=== PATIENT | female | born 1965 | race Caucasian/White ===

== ENCOUNTER 2023-08-22 10:18 | Emergency (ER) | payer OTHER, SELFPAY ==
[2023-08-22 10:24] VITALS: BP 166/95; PULSE 74; RESP 18; TEMP 36.3; O2SAT 97; BMI 32.8
--- NOTE | 2023-08-22 11:07 | CRLHL7_ITS ---
For Patients: As a result of the Cures Act, medical imaging exams and procedure reports are released immediately into your electronic medical record. You may view this report before your referring provider. If you have questions, please contact your health care provider. INDICATION: Left knee pain, fall TECHNIQUE: Three-view left knee COMPARISON: None FINDINGS: Three views of the left knee reveal no fracture, malalignment/dislocation, acute osseous abnormality or joint effusion. Mild to moderate degenerative changes are present in the medial compartment. IMPRESSION: Chronic changes without acute abnormality identified. Dictated by Jose Guadalupe Doherty MD @ 08/22/2023 12:20:03 PM (Electronically Signed)
--- NOTE | 2023-08-22 11:14 | ED_ITS ---
HPI - Extremity Injury (Lower) General Date Seen: 08/22/23 Chief Complaint: Extremity Pain/Injury, Lower Stated Complaint: left knee injury Time Seen by Provider: 08/22/23 10:59 Source: patient Mode of arrival: ambulatory Limitations: no limitations History of Present Illness HPI Narrative: Patient is a 58-year-old female with no pertinent medical problems presents to emergency department for left knee pain. She states yesterday was his the dog park her dog ran into her left knee causing her fall down. She has been able to walk on it but states it has been painful. She has no some increased swelling to the left knee. pain is mostly to the medial portion of the knee and down the medial portion of the dumont. Some left hip pain. States all this pain started shortly after the injury. No previous hip or knee issues. Denies fevers, chills, weakness, numbness. Related Data Home Medications Medication Instructions Recorded Confirmed amlodipine 10 mg tablet 10 mg PO DAILY 08/22/23 08/22/23 aspirin 81 mg tablet,delayed 81 mg PO DAILY 08/22/23 08/22/23 release furosemide 20 mg tablet 20 mg PO DAILY 08/22/23 08/22/23 losartan 100 mg tablet 100 mg PO DAILY 08/22/23 08/22/23 metoprolol succinate 50 mg 50 mg PO BID 08/22/23 08/22/23 tablet,extended release 24 hr rosuvastatin 10 mg tablet 10 mg PO QPM 08/22/23 08/22/23 Review of Systems Narrative: Negative unless stated in HPI Exam Narrative: Exam Narrative: Const: Well-nourished, Well-developed, in mild distress Eyes: PERRL, no conjunctival injection, and symmetrical lids HENT: Atraumatic external nose and ears. Moist mucous membranes. MSK:Extremities w/o deformity, Normal Active ROM, tenderness to palpation noted to left medial knee and dumont and some pain lateral aspect of the hip Skin: Warm, Dry. No rashes or lesions. Neuro: Normal Muscle tone, No focal neurological deficits. Psych: Awake, Alert, & Oriented x3. Appropriate mood and affect. Const: Vital Signs, click to edit/add: Vital Signs - 24 hr 08/22/23 10:24 Temperature 97.4 F L Pulse Rate [Right Pulse Oximeter] 74 Respiratory Rate 18 Blood Pressure [Ri ght Upper Arm] 166/95 H Pulse Oximetry 97 Oxygen Delivery Me thod Room Air Course Vital Signs Vital signs: Initial Vital Signs Temperature 97.4 F L 08/22/23 10:24 Temperature Source Temporal Artery Scan 08/22/23 10:24 Pulse Rate 74 08/22/23 10:24 Respiratory Rate 18 08/22/23 10:24 Blood Pressure 166/95 H 08/22/23 10:24 Blood Pressure Mean 118 H 08/22/23 10:24 Blood Pressure Position Sitting 08/22/23 10:24 Pulse Oximetry 97 08/22/23 10:24 Oxygen Delivery Method Room Air 08/22/23 10:24 Vital Signs Temperature 97.4 F L 08/22/23 10:24 Pulse Rate 74 08/22/23 10:24 Respiratory Rate 18 08/22/23 10:24 Blood Pressure 166/95 H 08/22/23 10:24 Pulse Oximetry 97 08/22/23 10:24 Oxygen Delivery Method Room Air 08/22/23 10:24 Temperature 97.4 F L 08/22/23 10:24 Pulse Rate 74 08/22/23 10:24 Respiratory Rate 18 08/22/23 10:24 Blood Pressure 166/95 H 08/22/23 10:24 Pulse Oximetry 97 08/22/23 10:24 Oxygen Delivery Method Room Air 08/22/23 10:24 MDM - Extremity Injury (Lower) MDM Narrative Medical decision making narrative: patient is a 58-year-old female presenting for left knee pain. This occurred after dog ran into her causing a valgus movement of the knee. She had some pain to the left hip and left dumont also. She was given Toradol for her pain. I did order x-rays of all 3 were patient states she does not want the hip or tib/ fib x-rays. X-rays of the knee showed no concerning abnormalities. Patient likely has soft tissue injury but cannot say definitively what it is. Pain is around the MCL And could have been what she injured. patient will follow-up with orthopedics in will be discharged home. She agrees with this plan. Imaging Data left knee x-ray: Radiologist's impression: INDICATION: Left knee pain, fall TECHNIQUE: Three-view left knee COMPARISON: None FINDINGS: Three views of the left knee reveal no fracture, malalignment/dislocation, acute osseous abnormality or joint effusion. Mild to moderate degenerative changes are present in the medial compartment. IMPRESSION: Chronic changes without acute abnormality identified. Dictated by Jose Guadalupe Doherty MD @ 08/22/2023 12:20:03 PM Discharge Plan Discharge Clinical Impression: Knee sprain Qualifiers: Encounter type: initial encounter Involved ligament of knee: unspecified ligament Laterality: left Qualified Code(s): S83.92XA - Sprain of unspecified site of left knee, initial encounter Patient Disposition: Home, Self-Care Condition: Stable Instructions: Knee Sprain (DC) Additional Instructions: follow-up with orthopedics if pain continues. Return for new worsening symptoms. He can use ice to help with the pain. Take Tylenol and ibuprofen for pain. Prescriptions: No Action metoprolol succinate 50 mg tablet extended release 24 hr 50 mg PO BID aspirin 81 mg tablet,delayed release (DR/EC) 81 mg PO DAILY amlodipine 10 mg tablet 10 mg PO DAILY furosemide 20 mg tablet 20 mg PO DAILY losartan 100 mg tablet 100 mg PO DAILY rosuvastatin 10 mg tablet 10 mg PO QPM Follow Up/Referrals: Rae Mota MD [Primary Care Provider] - Stand Alone Forms: [employer] [facility] Info Instructions
[2023-08-22] MEDS: KETOROLAC 30 MG/ML inj IM (11:15)
--- NOTE | 2023-09-03 13:18 | ED.NURSE ---
chart accessed due to calling and wanting proof that she was here for [place].
== END 2023-08-22 13:00 | disposition home or self-care (01) ==
PROVIDERS: Emergency Provider Student in an Organized Health Care Education/Training Program; PCP Family Medicine
DX: S83.92XA Sprain of unspecified site of left knee, initial encounter (principal); W54.1XXA Struck by dog, initial encounter
CPT/HCPCS: 73562; 96372; 99282; 99283; J1885

== ENCOUNTER 2023-11-19 07:58 | Day surgery (SDC) | payer OTHER, SELFPAY ==
[2023-11-19] VITALS (11 sets, daily range): BP systolic 90–121; BP diastolic 57–79; PULSE 58–64; RESP 16; TEMP 36.1–36.3; O2SAT 92–94; BMI 33.3
--- OUTSIDE RECORDS SUMMARY | 2023-11-19 08:10 | XMS_ITS | Clinical Summary ---
Author Name Unknown Organization [employer] [facility] Address [place], [place] [address] Care Team Providers Care Painting Contractor Name Role Phone Rae Mota MD Primary Care Provider [phone] Allergies Active Allergy Reactions Criticality Noted Date Comments Lisinopril 06/10/2010 Mouth and tongue swelling Menthol 06/27/2010 Medications Medication Sig Dispensed Refills Start Date End Date Status lancets (Microlet Lancet)Indications:N ew onset type 2 diabetes mellitus (HC) Test 3 times daily 100 Each 5 08/01/2021 Active amLODIPine (NORVASC) 10 mg tabletIndications:Hy pertension Take 1 Tablet (10 mg) by mouth once daily. 90 Tablet 3 12/02/2022 Active aspirin (ECOTRIN) 81 mg enteric coated tabletIndications:Ty pe 2 diabetes mellitus without complication, without long-term current use of insulin (HC) Take 1 Tablet (81 mg) by mouth once daily. 90 Tablet 3 12/02/2022 Active furosemide (LASIX) 20 mg tabletIndications:Hy pertension Take 1 Tablet (20 mg) by mouth once daily. 90 Tablet 3 12/02/2022 Active losartan (COZAAR) 100 mg tabletIndications:Hy pertension Take 1 Tablet (100 mg) by mouth once daily. 90 Tablet 3 12/02/2022 Active metFORMIN (GLUCOPHAGE) 1,000 mg tabletIndications:Ty pe 2 diabetes mellitus without complication, without long-term current use of insulin (HC) Take 1 Tablet (1,000 mg) by mouth two times daily with meals. 180 Tablet 3 12/02/2022 Active rosuvastatin (CRESTOR) 10 mg tabletIndications:Ty pe 2 diabetes mellitus without complication, without long-term current use of insulin (HC) Take 1 Tablet (10 mg) by mouth at bedtime. 90 Tablet 3 12/09/2022 Active metoprolol succinate (TOPROL XL) 50 mg sustained-release tabletIndications:Hy pertension TAKE 1 TABLET(50 MG) BY MOUTH TWICE DAILY 180 Tablet 0 07/14/2023 Active blood sugar diagnostic (Contour Next Test Strips) stripIndications:New onset type 2 diabetes mellitus (HC) Dispense item covered by pt ins. E11.9 IDDM type II - Test 3 times/day. 100 Each 5 08/01/2021 4 Discontinue d(*Patient states no longer taking) ondansetron (ZOFRAN ODT) 8 mg disintegrating tabletIndications:Na usea Place 1 Tablet (8 mg) on the tongue every 8 hours if needed for Nausea/Vomitin g. 30 Tablet 0 08/24/2023 4 Discontinue d(*Patient states no longer taking) Hospital, Clinic, or Other Facility Administered Medication Ordered Dose Route Frequency Start Date End Date Status levonorgestrel intrauterine device (MIRENA) 1 DeviceIndications:Excessive bleeding in premenopausal period 1 Device IU Q 5 YEARS 06/15/2020 Active Active Problems Problem Noted Date Diagnosed Date Type 2 diabetes mellitus wit hout complication, without long-term current use of insulin 11/09/2023 Left fibular fracture 11/09/2023 MCL sprain of left knee 11/09/2023 Tear of medial meniscus of left knee 11/09/2023 Endometriosis 06/07/2020 Obesity (BMI 30-39.9) 05/08/2020 Iron deficiency anemia due to chronic blood loss 05/04/2020 Abnormal ultrasound of uterus 05/04/2020 Overview: Thick endo Perimenopausal menorrhagia 05/02/2020 Hypertension 06/10/2010 Resolved Problems Problem Noted Date Diagnosed Date Resolved Date Prediabetes 05/08/2020 11/09/2023 Encounters Date Type Department Care Team Description 11/09/2023 3:30 PM METEOROLOGY INSTRUCTOR Preop Visit [facility] [address] [place] [address] Madelin Morris MD Pre-Op Exam (pre op knee left 11/19/23 Dr. Ricardo, [facility]) 11/09/2023 Travel 11/05/2023 Orders Only [facility] Scanner 1 scan: (1-Ord) [facility], 11/05/2023 10/06/2023 1:45 PM METEOROLOGY INSTRUCTOR - 10/06/2023 11:59 PM METEOROLOGY INSTRUCTOR Hospital Encounter [address] [place] [address] Rae Mota MD Acute pain of left knee 10/06/2023 Telephone [facility] [address] [place] [address] Rae Mota MD Results (/) 10/06/2023 Travel 09/23/2023 Telephone [facility] [address] [place] [address] Rae Mota MD Concussion (Concussion questions) 09/21/2023 Telephone [facility] [address] [place] [address] Rae Mota MD Results 09/18/2023 10:00 AM METEOROLOGY INSTRUCTOR Office Visit [facility] [address] [place] [address] Rae Mota MD Follow Up (Concussion Follow up 08/21/23/Still having nausea and dizziness ) 09/18/2023 Travel 09/14/2023 Telephone [facility] [address] [place] [address] Rae Mota MD Follow Up 09/09/2023 12:45 PM METEOROLOGY INSTRUCTOR Office Visit [facility] [address] [place] [address] Rae Mota MD ER Follow up 09/09/2023 Travel 09/07/[address] [address] Rae Mota MD Form (FMLA) 09/03/2023 Telephone [facility] [address] [place] [address] Rae Mota MD Questions 08/26/2023 Telephone [facility] [address] [place] [address] Rae Mota MD Medication Management (Metoclopramide ) 08/24/2023 1:20 PM CDT Office Visit [facility] [address] [place] [address] Katerina Juan PA Fall (Hurt LT knee on 08/21/23 at a dog park, headaches started on 08/22/23 and getting worse ) 08/24/2023 Travel 08/24/2023 Nurse Triage [facility] [address] [place] [address] Rae Mota MD Headache 08/22/2023 Orders Only [facility] Scanner 1 scan: (1-Ord) [place], XR KNEE LT 3V, 08/22/2023 from Last 3 Months Immunizations Name Administration Dates Next Due Hepatitis B (Adult) 06/02/2023,12/31/2022,2022 Influenza A (H1N1), Inactivated 12/17/2009 Influenza, IIV3 (Age 6-35 mos) 08/27/2009 Influenza, IIV4 09/18/2023,,07/27/2019,2017 Pneumococcal Conj 20-valent (Prevnar 20) 12/02/2022 Tdap 07/27/2019 Family History Medical History Relation Name Comments Diabetes Brother Diabetes Father Heart attack Maternal Grandfather Hypertension Mother Diabetes Sister 1 Hypertension Sister 2 Anesthesia Problem No Family History Blood Disease No Family History Cancer-breast No Family History Cancer-colon No Family History Clotting disorder No Family History Ovarian cysts No Family History Relation Name Status Comments Brother Alive Diabetic Father Alive DM Maternal Grandfather Mother Alive HTN, CABG Sister 1 Alive Sister 2 Alive Sister 3 Alive HTN Social History Tobacco Use Types Packs/Day Years Used Date Smoking Tobacco: Former Cigarettes 1 16 1 - 1996 Smokeless Tobacco: Never Tobacco Cessation:Counseling Given: Yes Comments:quit age 31 after smoking one ppd for 16 yrs. Alcohol Use Standard Drinks/Week Comments Yes 1 (1 standard drink = 0.6 oz pur e alcohol) occ PHQ-2 Answer Date Recorded PHQ-2 TOTAL SCORE 0 09/18/2023 Social Connections Answer Date Recorded Frequency of Communication with Friends and Fami ly 0 09/09/2023 Financial Resource Strain Answer Date R ecorded Difficulty of Paying Living Expenses 3 09/09/2023 Difficulty of Paying Living Expenses Not on file 09/09/2023 Food Insecurity Answer Date Recorded Worried About Running Out of Food in the Last Ye ar 1 09/09/2023 Transportation Needs Answer Date Record ed Lack of Transportation (Medical) 1 09/09/2023 Housing Stability Answer Date Recorded Unable to Pay for Housing in the Last Year 1 09/09/2023 Sex and Gender Information Value Date Recorded Sex Assigned at Not on file Gender Identity Not on file Sexual Orientation Not on file Obstetrics History Para Term AB IAB SAB Ectopic Multiple Livin g Live Births 12 8 8 4 1 3 8 8 Date Outcome GA Total Labor Labor//3rd Weight Sex Delivery Anes PTL Kimber A1 A5 Name Cl in SAB 11/02 IAB ELECTIVE AB 05/28 M Vag Lily ng 12/31 F Vag Lily ng 04/12 M Vag Lily ng 06/28 M Vag Lily ng 03/29 M Vag Lily ng 12/15 F Vag Lily ng 03/07 F Vag Lily ng 05/22 F Vag Lily ng Last Filed Vital Signs Vital Sign Reading Time Taken Comments Blood Pressure 121/80 11/09/2023 3:43 PM METEOROLOGY INSTRUCTOR Pulse 68 11/09/2023 3:43 PM METEOROLOGY INSTRUCTOR Temperature 36.6 ??C (97.9 ??F) 11/09/2023 3:43 PM CS T Respiratory Rate 18 06/10/2021 9:32 AM CDT Oxygen Saturation 97% 11/09/2023 3:43 PM METEOROLOGY INSTRUCTOR Inhaled Oxygen Concentration - - Weight 85.5 kg (188 lb 6.4 oz) 11/09/2023 3:43 P M METEOROLOGY INSTRUCTOR Height 160.7 cm (5' 3.25) 11/09/2023 3:43 PM CS T Body Mass Index 33.11 11/09/2023 3:43 PM METEOROLOGY INSTRUCTOR Plan of Treatment Upcoming Encounters Date Type Department Care Team (Late st Contact Info) Description 12/15/2023 3:40 PM METEOROLOGY INSTRUCTOR Office Visit [facility] [address] [place] [address] Rae Mota MD [address] [facility] [address] Health Maintenance Due Date Last Done Comments HIV for age 15-65 1982 Hepatitis C screening for ag e 18-79 1985 Colonoscopy through age 75 2012 Mammogram for age 45-75 2012 Zoster (shingles) series for age 50+ (1 of 2) 2017 COVID-19 vaccine series (2022- season) 2023 01/09/2021, 12/12/2020 Depression screening for age 12+ 09/21/2024 09/21/2023, 09/18/2023, 07/26/2021, Additional history exists BMI (ht and wt on same day) for age 18+ 11/09/2024 11/09/2023, 08/24/2023, 12/02/2022, Additional history exists Pap test for age 21-65 05/08/2025 05/08/2020, 2019 Lipids for age 45-75 09/18/2028 09/18/2023, 12/02/2022, 11/12/2021, Additional history exists Tetanus booster 07/27/2029 07/27/2019 Tdap Completed 07/27/2019 Pneumococcal series for age 6-64 Completed 12/02/19 Hepatitis B series for Diabetes Completed 06/02/2023, 12/31/2022, 12/02/2022 Influenza for age 50-64 Completed 09/18/20 23, 07/23/2021, 07/27/2019, Additional history exists Procedures Procedure Name Priority Date/Time Associated Diagnosis Comments POTASSIUM Routine 11/09/2023 4:23 PM METEOROLOGY INSTRUCTOR Pre-op exam SCAN-EYE EXAM 11/05/2023 12:00 AM METEOROLOGY INSTRUCTOR MR KNEE LEFT WO Routine 10/06/2023 2:24 PM METEOROLOGY INSTRUCTOR Acute pain of left knee LDL CHOLESTEROL,DIRECT Routine 09/18/2023 11:16 AM METEOROLOGY INSTRUCTOR Type 2 diabetes mellitus without complication, without long-term current use of insulin (HC) BASIC METABOLIC PANEL Routine 09/18/2023 11:16 AM METEOROLOGY INSTRUCTOR Hypertension HEMOGLOBIN A1C Routine 09/18/2023 11:16 AM METEOROLOGY INSTRUCTOR Type 2 diabetes mellitus without complication, without long-term current use of insulin (HC) SCAN-RADIOLOGY REPORT 08/22/2023 12:00 AM CDT from Last 3 Months Results * POTASSIUM (11/09/2023 4:23 PM METEOROLOGY INSTRUCTOR) POTASSIUM 3.7 3.5 - 5.1 mmol/L 11/10/2023 1:59 PM METEOROLOGY INSTRUCTOR [facility] Blood BLOOD SPECIMEN / Unknown Venipuncture / Unknown 11/09/2023 4:23 PM METEOROLOGY INSTRUCTOR 11/09/2023 4:23 PM METEOROLOGY INSTRUCTOR Madelin Morris MD CHEMISTRY [facility] [address] [place] [id number], * SCAN-EYE EXAM (11/05/2023 12:00 AM METEOROLOGY INSTRUCTOR) Scanner OTHER * MR KNEE LEFT WO (10/06/2023 2:24 PM METEOROLOGY INSTRUCTOR) Anatomical Region Laterality Modality KNEE L Magnetic Resonan ce 10/06/2023 3:57 PM METEOROLOGY INSTRUCTOR Impressions 10/06/2023 3:57 PM METEOROLOGY INSTRUCTOR 1. Complex tearing medial meniscus with internal flap. 2. Grade 2 partial tearing proximal MCL. Associated MCL bursitis. 3. Nondisplaced fibular head fracture with intra-articular extension but no incongruity at the proximal tibiofibular joint. 4. Mild osteoarthritis medial and patellofemoral compartment. 5. Multiloculated moderately large intra-articular pericruciate ganglion. Dictated by Juan Ramon Carlos MD @ 10/06/2023 3:57:08 PM (Electronically Signed) Narrative 10/06/2023 3:57 PM METEOROLOGY INSTRUCTOR For Patients: ??As a result of the Cures Act, medical imaging exams and procedure reports are released immediately into your electronic medical record. ??You may view this report before your referring provider. ??If you have questions, please contact your health care provider. INDICATION: Acute knee pain. Tenderness and swelling. COMPARISON: 23 June 2022. TECHNIQUE: Axial T1 and PD fat-sat, sagittal PD and T2 fat-sat and coronal PD and PD fat- sat left knee. FINDINGS: Medial compartment: Meniscus: Complex horizontal undersurface tear of the body and posterior horn. An internal displaced flap. Intact root. Mild extrusion of anterior horn and anterior body. Articular cartilage: Undulating relatively high-grade 2 to grade 3. Tiny marginal osteophytes. MCL: Somewhat attenuated proximal ligament and thickened mid ligament with underlying fluid in the bursa. Soft tissue edema along the medial joint line. - Cruciate ligaments: ACL: Intact. PCL: Intact. - Lateral compartment: Meniscus: Intact. Articular cartilage: Uniform. Lateral collateral complex: Intact. - Patellofemoral compartment: Up to irregular grade 3 thinning and fissuring in the patella most pronounced at the median ridge. Mild grade 2 thinning uniformly through the trochlea. - Extensor mechanism: Distal quadriceps tendon and patellar tendon are intact with anatomic patellar alignment. - Bones and soft tissues: Physiologic free fluid in the joint. Multiloculated ganglion posterior recess behind the PCL. Small popliteal Hanna`s cyst. Trabecular fracture with surrounding fibular head. Fracture extends through the articular cortex without incongruity of the joint. Procedure Note Juan Ramon Carlos MD - 10/06/2023 For Patients: As a result of the Cures Act, medical imagingexams and procedure reports are released immediately into your electronicmedical record. You may view this report before your referring provider.If you have questions, please contact your health care provider. INDICATION: Acute knee pain. Tenderness and swelling. COMPARISON: 23 June 2022. TECHNIQUE: Axial T1 and PD fat-sat, sagittal PD and T2 fat-sat and coronal PD and PDfat-sat left knee. FINDINGS: Medial compartment: Meniscus: Complex horizontal undersurface tear of the body and posteriorhorn. An internal displaced flap. Intact root. Mild extrusion of anteriorhorn and anterior body. Articular cartilage: Undulating relatively high-grade 2 to grade 3. Tinymarginal osteophytes. MCL: Somewhat attenuated proximal ligament and thickened mid ligament withunderlying fluid in the bursa. Soft tissue edema along the medial jointline. - Cruciate ligaments: ACL: Intact. PCL: Intact. - Lateral compartment: Meniscus: Intact. Articular cartilage: Uniform. Lateral collateral complex: Intact. - Patellofemoral compartment: Up to irregular grade 3 thinning and fissuringin the patella most pronounced at the median ridge. Mild grade 2 thinninguniformly through the trochlea. - Extensor mechanism: Distal quadriceps tendon and patellar tendon areintact with anatomic patellar alignment. - Bones and soft tissues: Physiologic free fluid in the joint.Multiloculated ganglion posterior recess behind the PCL. Small poplitealBaker`s cyst. Trabecular fracture with surrounding fibular head. Fractureextends through the articular cortex without incongruity of the joint. IMPRESSION: 1. Complex tearing medial meniscus with internal flap. 2. Grade 2 partial tearing proximal MCL. Associated MCL bursitis. 3. Nondisplaced fibular head fracture with intra-articular extension butno incongruity at the proximal tibiofibular joint. 4. Mild osteoarthritis medial and patellofemoral compartment. 5. Multiloculated moderately large intra-articular pericruciateganglion. Dictated by Juan Ramon Carlos MD @ 10/06/2023 3:57:08 PM (Electronically Signed) Rae Mota MD MR * LDL CHOLESTEROL,DIRECT (09/18/2023 11:16 AM METEOROLOGY INSTRUCTOR) LDL CHOLESTEROL,DI RECT 24 mg/dL 09/18/2023 6:00 PM METEOROLOGY INSTRUCTOR [facility] PROVIDER ORDERED STATUS RANDOM 09/18/2023 6:00 PM METEOROLOGY INSTRUCTOR [facility] Blood BLOOD SPECIMEN / Unknown Venipuncture / Unknown 09/18/2023 11:16 AM METEOROLOGY INSTRUCTOR 09/18/2023 11:16 AM METEOROLOGY INSTRUCTOR Narrative [facility] - 09/18/2023 6:00 PM METEOROLOGY INSTRUCTOR Optimal ?<100 mg/dl Near Optimal ?100-129 mg/dl Borderline High ?? 130-159 mg/dl High ?160-189 mg/dl Very High ? >=190 mg/dl Rae Mota MD CHEMISTRY Performing Organization Address [facility] de Phone Number [facility] [address] [place] [address], [place] * (ABNORMAL) HEMOGLOBIN A1C MONITORING (POCT) (09/18/2023 11:16 AM METEOROLOGY INSTRUCTOR) HEMOGLOBIN A1C MONITORING (POCT) 6.8(H) <=6.4 % 09/18/2023 11:39 AM METEOROLOGY INSTRUCTOR [facility] Blood BLOOD SPECIMEN / Unknown Venipuncture / Unknown 09/18/2023 11:16 AM METEOROLOGY INSTRUCTOR 09/18/2023 11:16 AM METEOROLOGY INSTRUCTOR Narrative [facility] - 09/18/2023 11:39 AM METEOROLOGY INSTRUCTOR ? (<=6.9%) ? Indicates good control ? (7.0% to 7.9%) ? Indicates fair control ? (>=8.0%) ? Indicates poor control ?? NOTE: ??These thresholds are guidelines and ?individual targets may vary. Falsely low levels may be seen with: Recent Transfusion, Recent Significant Blood Loss, Hemolytic Diseases, or Falsely elevated levels may be seen with: Untreated Anemias, Splenectomy ? Rae Mota MD CHEMISTRY Performing Organization Address [facility] de Phone Number [facility] [address] [place] [address], [place] [phone] * (ABNORMAL) BASIC METABOLIC PANEL (09/18/2023 11:16 AM METEOROLOGY INSTRUCTOR) [facility] SODIUM 140 136 - 145 mmol/L 09/18/2023 6:00 PM [facility] POTASSIUM 4.1 3.5 - 5.1 mmol/L 09/18/2023 6:00 PM [facility] CHLORIDE 102 98 - 107 mmol/L 09/18/2023 6:00 PM [facility] CO2,TOTAL 28 22 - 29 mmol/L 09/18/2023 6:00 PM [facility] ANION GAP 10 5 - 18 09/18/2023 6:00 PM [facility] GLUCOSE 127(H) 70 - 99 mg/dL 09/18/2023 6:00 PM [facility] CALCIUM 9.2 8.6 - 10.0 mg/dL 09/18/2023 6:00 PM [facility] BUN 12 6 - 20 mg/dL 09/18/2023 6:00 PM [facility] CREATININE 0.66 0.50 - 0.90 mg/dL 09/18/2023 6:00 PM [facility] BUN/CREAT RATIO 18 10 - 20 6:00 PM [facility] eGFR >90 >90 mL/min/1.7 3m2 09/18/2023 6:00 PM [facility] Comment:As of 2022, eG FR is calculated by the CKD-EPI creatinine equation without race adjustment. ??eGFR can be influenced by muscle mass, exercise, and diet. ??The reported eGFR is an estimation only and is only applicable if the renal function is stable. Blood BLOOD SPECIMEN / Unknown Venipuncture / Unknown 09/18/2023 11:16 AM METEOROLOGY INSTRUCTOR 09/18/2023 11:16 AM [facility] Rae Mota MD CHEMISTRY [facility] [address] [place] [address], * SCAN-RADIOLOGY REPORT (08/22/2023 12:00 AM CDT) Anatomical Region Laterality Modality Other Scanner OTHER from Last 3 Months Advance Directives Latest Code Status on File Code Status Date Activated Date Inactivated Comments Full Code 05/18/2020 9:01 AM 05/18/2020 3:33 PM Care Teams Painting Contractor Relationship Specialty Start Date End Date Rae Mota MD [address] [facility] [address] PCP - General Family Practice 10/06/17
--- OUTSIDE RECORDS SUMMARY | 2023-11-19 08:10 | XMS_ITS | Encounter Summary ---
Author Name Unknown Organization [facility] Address [address], [place] [address] Care Team Providers Care Wholesale Representative Name Role Phone No Primary/Referring, Phy Primary Care Provider Unavailable Reason for Referral * Consult/Transfer Care (Routine) - New Request Specialty Diagnoses / Procedures Referred By Kimberly latham Referred To Contact Diagnoses Acute nonintractable headache, unspecified headache type Post concussive syndrome Ranjeet Guaman MD [address] [place] [id number] Referral ID Status Reason Start Date Expiration Date V isits Requested Visits Authorized [id number] New Request 08/25/2023 11/23/2023 1 1 Scheduling Instructions Your clinician has recommended an appointment with [facility] for your ongoing patient care. You can quickly make your appointment online at [email or web address]. You can also call [phone] for help scheduling your appointment. We suggest you call your health insurance company about your coverage and benefits for this appointment. Question Answer What type of follow up? ED Discharge Appointment Urgency? As Needed Comments No Primary/Referring * Procedure/Equipment (Routine) - Incomplete Specialty Diagnoses / Procedures Referred By Kimberly latham Referred To Contact Procedures CT Head WO IV Cont Ranjeet Guaman MD [address] [place] [id number] Referral ID Status Reason Start Date Expiration Date V isits Requested Visits Authorized [id number] Incomplete 08/25/2023 11/23/2024 1 1 Reason for Visit * Reason Comments Headache Encounter Details Date Type Department Care Team Description 08/25/2023 1:11 AM CDT - 08/25/2023 2:42 AM CDT Emergency [facility] [address] [place] [id number] Ranjeet Guaman MD [address] [place] [address] Acute nonintractable headache, unspecified headache type (Primary Dx); Post concussive syndrome Discharge Disposition: Home Social History Tobacco Use Types Packs/Day Years Used Date Smoking Tobacco: Never Assessed Sex and Gender Information Value Date Recorded Sex Assigned at Not on file Gender Identity Not on file Sexual Orientation Not on file documented as of this encounter Last Filed Vital Signs Vital Sign Reading Time Taken Comments Blood Pressure 147/90 08/25/2023 2:30 AM CDT Pulse 70 08/25/2023 2:30 AM CDT Temperature 36.6 ??C (97.8 ??F) 08/24/2023 9:45 PM CD T Respiratory Rate 16 08/25/2023 2:30 AM CDT Oxygen Saturation 99% 08/25/2023 2:30 AM CDT Inhaled Oxygen Concentration - - Weight - - Height - - Body Mass Index - - documented in this encounter Discharge Instructions * Discharge Instructions* Tushar Cintron MD - 08/25/2023 2:29 AM CDT You were seen in the emergency department for headache. We did tests including CT scan that showed no evidence of bleeding in the brain, and no clear cause for your symptoms. Because you are experiencing prolonged headache and nausea after a fall during which you likely hit her head, it seems you are probably experiencing symptoms of concussion. It can be difficult to predict how long these symptoms will last, for some people can last hours to days, for others can last weeks to months. If you would like formal concussion testing, you can meet with her primary doctor for evaluation. In the meantime, you can take ibuprofen or acetaminophen (Tylenol) for your headache pain. You can alternate these every three hours as needed. So, for example, you could take ibuprofen at noon, then Tylenol at 3pm, then ibuprofen again at 6pm, and so on. Do not take more Tylenol or ibuprofen than the daily maximum dose as indicated on the bottle. I am also sending you with a prescription for a medication called metoclopramide, also called Reglan, which is a medicine that you can take to help with both headache and nausea. Return to the emergency department if your symptoms worsen or you have new symptoms that you find concerning. * Attachments The following attachments cannot be sent through Care Everywhere. * Postconcussion Syndrome (Estonian) documented in this encounter Medications at Time of Discharge Medication Sig Dispensed Refills Start Date End Date amLODIPine (NORVASC) 10 MG tablet Take 1 Tablet (10 mg) by mouth daily. 0 07/22/2023 ASPIRIN LOW DOSE 81 MG enteric coated tablet Take 1 Tablet (81 mg) by mouth daily. 0 06/22/2023 furosemide (LASIX) 20 MG tablet Take 1 Tablet (20 mg) by mouth daily. 0 08/15/2023 losartan (COZAAR) 100 MG tablet Take 1 Tablet (100 mg) by mouth daily. 0 07/13/2023 metoclopramide (REGLAN) 10 MG tablet Take 1 Tablet (10 mg) by mouth every 8 hours as needed for Nausea or Vomiting 15 Tablet 0 08/25/2023 metoprolol succinate (TOPROL XL) 50 MG 24 hour release tablet Take by mouth. 0 07/14/2023 rosuvastatin (CRESTOR) 10 MG tablet Take 1 Tablet (10 mg) by mouth daily at bedtime. 0 06/22/2023 documented as of this encounter ED Notes * uTshar Cintron MD - 08/25/2023 2:42 AM CDT [facility] Emergency Medicine Visit Note Chief Complaint: Headache HPI 58 y.o. female with HTN, HLD who presents for evaluation of posttraumatic headache. Patient was [place] the [employer] park on [place], 3 days ago, when her dog accidentally pulled away from her, causing her to fall to the ground. She thinks she hit her head. No loss of consciousness. Did have some left knee pain. Headache has been worsening since that time. Feels like it was worse when she stands up. No photosensitivity. No vomiting or vision changes. Acting normally per . Not on anticoagulants. Has been taking acetaminophen and ibuprofen but does not think that has been helping. Triage Vitals [08/24/232144] Temp 97.8 ??F (36.6 ??C) Temp src Oral Pulse 74 Resp 18 BP (!) 159/95 SpO2 98 % Physical Exam Constitutional: Laying in hospital bed, alert, oriented, in no apparent distress, conversant HEENT: normocephalic, atraumatic, pupils 3mm, equal, round, and reactive to light, sclerae anicteric, extraocular motions intact Neck: able to fully range, no midline tenderness Cardiovascular: regular rate and rhythm, no murmurs, rubs, or extra heart sounds Pulmonary: breathing comfortably on room air, lungs clear to auscultation bilaterally Abdominal: soft, non-tender, non-distended Extremities: no peripheral edema Skin: warm, dry Neurologic: moves all four extremities spontaneously, 5/5 candle molder machine strength bilaterally, 5/5 strength in dorsiflexion and plantarflexion bilaterally, sensation intact to light touch in bilateral upper and lower extremities, ambulates without assistance, CNII-XII intact Psychiatric: Calm, appropriate MDM: Patient is a 58-year-old female with above medical history presenting for evaluation of posttraumatic headache, not on anticoagulants. Hypertensive, vitals otherwise reassuring. Exam is reassuring, she appears well, no focal neurologic deficit. Presentation most consistent with postconcussive headache. Discussed that while acute intracranial hemorrhage is unlikely, it was still possible. Offered CT scan, which she would like to pursue. Low concern for C-spine process. Otherwise do not feel labs or imaging are indicated. Planning for droperidol for headache. Tushar Cintron MD ED Course as of 08/25/23 0337 Tue Aug 25, [id number] CT Head WO IV Cont IMPRESSION: 1. Normal head CT. 2. Scattered nonspecific opacification of the right ethmoid air cells. Correlate for acute sinusitis. [LAURENT] [id number] ATTENDING: I personally saw the patient, performed aquino elements of the visit, and supervised patient care with the credentialing assistant. MDM: Traumatic headache. CT negative. Will treat symptoms. D/c with concussion precautions. [RB] ED Course User Index [LAURENT] Tushar Cintron MD [RB] Ranjeet Guaman MD Clinical Impressions as of 08/25/23 0337 Acute nonintractable headache, unspecified headache type Post concussive syndrome * Tabitha Person RN - 08/25/2023 2:41 AM CDT [facility] ED Nursing Discharge Note Arrival Information: Patient arrived: Patient escorted by: Discharge Information: Patient discharged: Home Patient accompanied by: Transport mode: Discharge instructions given and explained to patient: Follow up appointment review with patient: Yes New discharge prescriptions explained to patient: Yes: Medications Prescribed this Visit Disp Refills Start End metoclopramide (REGLAN) 10 MG tablet 15 Tablet 0 08/25/2023 Take 1 Tablet (10 mg) by mouth every 8 hours as needed for Nausea or Vomiting (for nausea or vomiting). Oral Renewals Renewal requests to authorizing provider (Ranjeet Guaman MD) <b>prohibited</b> LDA in place: Patient verbalized understanding of discharge plan and capable of completing discharge plan: Yes Does patient require hand-off or assistance with discharge plan: No Belongings and medication returned to patient and prompted to retrieve weapons: Yes Patient level of pain on discharge: (0-10) Pain Rating: Rest: 5 Holds documented by nursing during this visit - reviewed chart for most current hold status: n/a Legal Status Orders (From admission, onward) None * Liyah Clark RN - 08/24/2023 9:52 PM CDT Patient declined tylenol/ibuprofen as it is not working documented in this encounter Plan of Treatment Scheduled Referrals Name Type Priority Associated Diagnoses Orde r Schedule Primary Care Follow-Up - As Needed Referral Routine Acute nonintractable headache, unspecified headache type Post concussive syndrome Ordered: 08/25/2023 documented as of this encounter Procedures Procedure Name Priority Date/Time Associated Diagnosis Comments CT HEAD WO IV CONT STAT 08/25/2023 1: 51 AM CDT documented in this encounter Results * CT Head WO IV Cont (08/25/2023 1:51 AM CDT) Anatomical Region Laterality Modality Head Computed Tomogra phy 08/25/2023 1:51 AM CDT Narrative 08/25/2023 1:59 AM CDT EXAM: CT HEAD WO IV CONT LOCATION: [facility] DATE: 08/25/2023 INDICATION: Fall, persistent headache COMPARISON: None. TECHNIQUE: Routine CT Head without IV contrast. Multiplanar reformats. Dose reduction techniques were used. FINDINGS: INTRACRANIAL CONTENTS: No intracranial hemorrhage, extraaxial collection, or mass effect. ??No CT evidence of acute infarct. Normal parenchymal attenuation. Normal ventricles and sulci. VISUALIZED ORBITS/SINUSES/MASTOIDS: No intraorbital abnormality. Scattered opacification of the right ethmoid air cells. No middle ear or mastoid effusion. BONES/SOFT TISSUES: No acute abnormality. IMPRESSION: 1. ??Normal head CT. 2. ??Scattered nonspecific opacification of the right ethmoid air cells. Correlate for acute sinusitis. Procedure Note Jose Guadalupe Busch MD - 08/25/2023 EXAM: CT HEAD WO IV CONT LOCATION: [facility] DATE: 08/25/2023 INDICATION: Fall, persistent headache COMPARISON: None. TECHNIQUE: Routine CT Head without IV contrast. Multiplanar reformats.Dose reduction techniques were used. FINDINGS: INTRACRANIAL CONTENTS: No intracranial hemorrhage, extraaxial collection,or mass effect. No CT evidence of acute infarct. Normal parenchymalattenuation. Normal ventricles and sulci. VISUALIZED ORBITS/SINUSES/MASTOIDS: No intraorbital abnormality. Scatteredopacification of the right ethmoid air cells. No middle ear or mastoideffusion. BONES/SOFT TISSUES: No acute abnormality. IMPRESSION: 1. Normal head CT. 2. Scattered nonspecific opacification of the right ethmoid air cells.Correlate for acute sinusitis. Ranjeet Guaman MD RAD CT documented in this encounter Visit Diagnoses Diagnosis Acute nonintractable headache, unspecified headache type- Primary Post concussive syndrome Postconcussion syndrome * Triage Assessment Note - Liyah Clark RN - 08/24/2023 9:42 PM CDT Patient was hit by a dog and [place] on [place]. Next day she had a headache and is progressively gotten worse. She was in the ER Thursday given Toradol and had no relief. Headache seems to be getting worse. Patient is on BP medication but says she still runs high. documented in this encounter Administered Medications Inactive Administered Medications - up to 3 most recent administrations Medication Order MAR Action Action Date Dose Rate Site droPERidol (INAPSINE) injection 2.5 mg 2.5 mg, Intramuscular, ONCE, On Thu08/25/23 at 0145, For 1 dose Given 08/25/2023 1:46 AM CDT 2.5 mg L eft Deltoid documented in this encounter Active and Recently Administered Medications Times are shown in CDT. Scheduled Medication Order 08/23/2023 08/24/2023 08/25/2023 droPERidol (INAPSINE) injection 2.5 mg (COMPLETED) 2.5 mg, Intramuscular, ONCE, On Thu08/25/23 at 0145, For 1 dose 0146 (Given - Provid er: Tabitha Person RN) documented in this encounter Care Teams Wholesale Representative Relationship Specialty Start Date End Date No Primary/Referring, Phy PCP - General 08/24/23 documented as of this encounter
--- OUTSIDE RECORDS SUMMARY | 2023-11-19 08:10 | XMS_ITS | Encounter Summary ---
Author Name Unknown Organization [facility] Address [address] [place] [address] Care Team Providers Care Business Operations Manager Name Role Phone No Primary/Referring, Phy Primary Care Provider Unavailable Reason for Visit * Procedure/Equipment (Routine) - Incomplete Specialty Diagnoses / Procedures Referred By Kimberly latham Referred To Contact Procedures CT Head WO IV Cont Ranjeet Guaman MD [address] [place] [id number] Referral ID Status Reason Start Date Expiration Date V isits Requested Visits Authorized [id number] Incomplete 08/25/2023 11/23/2024 1 1 Encounter Details Date Type Department Care Team Description 08/25/2023 1:30 AM CDT Ancillary Procedure [facility] [address] [place] [address] Social History Tobacco Use Types Packs/Day Years Used Date Smoking Tobacco: Never Assessed Sex and Gender Information Value Date Recorded Sex Assigned at Not on file Gender Identity Not on file Sexual Orientation Not on file documented as of this encounter Plan of Treatment Not on file documented as of this encounter Procedures Procedure Name Priority Date/Time Associated Diagnosis Comments CT HEAD WO IV CONT STAT 08/25/2023 1: 51 AM CDT documented in this encounter Results * CT Head WO IV Cont (08/25/2023 1:51 AM CDT) Anatomical Region Laterality Modality Head Computed Tomogra phy 08/25/2023 1:51 AM CDT Narrative 08/25/2023 1:59 AM CDT EXAM: CT HEAD WO IV CONT LOCATION: [facility] DATE: 08/25/2023 INDICATION: Fall, persistent headache [...] EXAM: CT HEAD WO IV CONT LOCATION: [facility] DATE: 08/25/2023 INDICATION: Fall, persistent headache [...] CT documented in this encounter Visit Diagnoses Not on filedocumented in this encounter Care Teams Business Operations Manager Relationship Specialty Start Date End Date No Primary/Referring, Phy PCP - General 08/24/23 documented as of this encounter
--- OUTSIDE RECORDS SUMMARY | 2023-11-19 08:10 | XMS_ITS | Clinical Summary ---
Author Name Unknown Organization [facility] Address [address] [address] Care Team Providers Care Presentation Manager Name Role Phone No Primary/Referring, Phy Primary Care Provider Unavailable Source Comments You are receiving this document as you are listed as the primary care provider,follow-up provider, or the patient has been referred to you for consultation.This is in compliance with the Medicare and[facility] EHR Incentive Program,which states Providers who transition their patient to another setting of careor provider of care or refers their patient to another provider of care shouldprovide summary care record for each transition of care or referral. [facility] Allergies No known active allergies Medications Medication Sig Dispensed Refills Start Date End Date Status metoclopramide (REGLAN) 10 MG tablet Take 1 Tablet (10 mg) by mouth every 8 hours as needed for Nausea or Vomiting 15 Tablet 0 08/25/2023 Active amLODIPine (NORVASC) 10 MG tablet Take 1 Tablet (10 mg) by mouth daily. 0 07/22/2023 Active ASPIRIN LOW DOSE 81 MG enteric coated tablet Take 1 Tablet (81 mg) by mouth daily. 0 06/22/2023 Active furosemide (LASIX) 20 MG tablet Take 1 Tablet (20 mg) by mouth daily. 0 08/15/2023 Active losartan (COZAAR) 100 MG tablet Take 1 Tablet (100 mg) by mouth daily. 0 07/13/2023 Active metoprolol succinate (TOPROL XL) 50 MG 24 hour release tablet Take by mouth. 0 07/14/2023 A ctive rosuvastatin (CRESTOR) 10 MG tablet Take 1 Tablet (10 mg) by mouth daily at bedtime. 0 06/22/2023 Active Active Problems Problem Noted Date Diagnosed Date Endometriosis 06/07/2020 Obesity (BMI 30-39.9) 05/08/2020 Prediabetes 05/08/2020 Iron deficiency anemia due to chronic blood loss 05/04/2020 Perimenopausal menorrhagia 05/02/2020 Hypertension 06/10/2010 Encounters Date Type Department Care Team Description 08/25/2023 1:30 AM CDT Ancillary Procedure [facility] [address] [place] [address] 08/25/2023 1:11 AM CDT - 08/25/2023 2:42 AM CDT Emergency [facility] [address] [place] [address] Ranjeet Guaman MD Acute nonintractable headache, unspecified headache type (Primary Dx); Post concussive syndrome Discharge Disposition: Home from Last 3 Months Social History Tobacco Use Types Packs/Day Years Used Date Smoking Tobacco: Never Assessed Sex and Gender Information Value Date Recorded Sex Assigned at Not on file Gender Identity Not on file Sexual Orientation Not on file Last Filed Vital Signs Vital Sign Reading Time Taken Comments Blood Pressure 147/90 08/25/2023 2:30 AM CDT Pulse 70 08/25/2023 2:30 AM CDT Temperature 36.6 ??C (97.8 ??F) 08/24/2023 9:45 PM CD T Respiratory Rate 16 08/25/2023 2:30 AM CDT Oxygen Saturation 99% 08/25/2023 2:30 AM CDT Inhaled Oxygen Concentration - - Weight - - Height - - Body Mass Index - - Plan of Treatment Health Maintenance Due Date Last Done Comments Cervical Cancer Screening Due 1967 Colon Cancer Screening Plan Due 1967 Hep C Screening (Preventive Services) 1967 HepB (1) 1967 Prediabetes: HGBA1C 1967 Mammogram 1967 COVID-19 Vaccine (#1) 02/05/1968 HIV Screening (Preventive Services) 1983 Adult Preventive Visit 1985 Cholesterol 2012 Zoster/Shingles (1 of 2) 2017 Influenza (#1) 2023 07/23/2021, 09/2 03/2019, 09/01/2018, Additional history exists DTaP/Tdap/Td (2 - Tdap) 07/27/2029 07/27/2019 HepA Aged Out No longer eligi ble based on patient's age to complete this topic Hib Aged Out No longer eligi ble based on patient's age to complete this topic IPV (Polio) Aged Out No longer eligi ble based on patient's age to complete this topic MCV4 Aged Out No longer eligi ble based on patient's age to complete this topic Pneumococcal Aged Out No longer eligi ble based on patient's age to complete this topic Procedures Procedure Name Priority Date/Time Associated Diagnosis Comments CT HEAD WO IV CONT STAT 08/25/2023 1: 51 AM CDT from Last 3 Months Results * CT Head WO IV Cont (08/25/2023 1:51 AM CDT) Anatomical Region Laterality Modality Head Computed Tomogra phy 08/25/2023 1:51 AM CDT Narrative 08/25/2023 1:59 AM CDT EXAM: CT HEAD WO IV CONT LOCATION: [facility] DATE: 08/25/2023 INDICATION: Fall, [...] EXAM: CT HEAD WO IV CONT LOCATION: [facility] DATE: 08/25/2023 INDICATION: Fall, [...] acute sinusitis. Ranjeet Guaman MD RAD CT from Last 3 Months Care Teams Presentation Manager Relationship Specialty Start Date End Date No Primary/Referring, Phy PCP - General 08/24/23
[2023-11-19] MEDS: ETHYL CHLORIDE 1 APPLICATION 1 APPLIC TOPICAL (08:30)
[2023-11-19] MEDS: LACTATED RINGERS 1000 ML 1,000 ML 100 ML IV (09:00)
[2023-11-19] MEDS: SODIUM CHLORIDE 0.9 % (FLUSH) 10 ML SYRINGE IVF (09:10)
[2023-11-19] MEDS: CEFAZOLIN 2 GM INJ IVP (09:15)
[2023-11-19] MEDS: BUPIVACAINE 0.25% 30 ML INJECTION (10:15)
--- NOTE | 2023-11-19 10:18 | PM.ORPRC ---
Procedure Note Date of procedure: 11/19/23 Procedure: PREOPERATIVE DIAGNOSIS: Left knee medial meniscus tear, intra-articular cyst posterior to the PCL POSTOPERATIVE DIAGNOSIS: Left knee medial meniscus tear, intra-articular cyst posterior to the PCL NAME OF OPERATION: Left knee arthroscopic partial medial meniscectomy, cyst debridement SURGEON: Pineda Ricardo MD [employer] WORKER: Kizzy Talbert PA-C ANESTHESIA: Spinal ESTIMATED BLOOD LOSS: 0 mL COMPLICATIONS: None SPECIMENS: None DRAINS: None PREOPERATIVE ANTIBIOTICS: Ancef 2 gram INDICATIONS: The patient is a 58-year-old with a history of left knee medial pain and posterior fullness. MRI scan is consistent with a medial meniscus tear and a large multi lobulated cyst just posterior to the PCL in the notch. Despite appropriate nonoperative management, including activity modification, antiinflammatories, [id number] pain medication, bracing, physical therapy, and injections they continue to have pain and disability. Operative intervention was offered. The risks, benefits and expected outcomes were discussed in detail. These included but were not limited to: Infection, bleeding, injury to blood vessel or nerve, venous thromboembolism. All questions were answered to their satisfaction. PROCEDURE: Spinal anesthesia was administered. The patient was placed supine on the operating room table. The left lower extremity was prepped and draped in the usual sterile fashion. The limb was exsanguinated with the Leoncio bandage. The pneumatic tourniquet was inflated to 300 mmHg. A standard anterolateral portal was established. The arthroscope was introduced. The working portal was established anteromedially. Diagnostic arthroscopy was performed with findings as follows: The suprapatellar pouch is normal. Articular surface on the patella is normal. Articular surface on the trochlea is normal. The medial gutter is normal. The medial compartment shows diffuse grade 2 change on the medial femoral condyle, normal articular cartilage on the medial tibial plateau. The medial meniscus has a degenerative tear of the leading edge of the posterior horn. This consists of a small parrot-beak tear with an unstable flap and undersurface horizontal cleavage tearing. The notch shows the ACL to be intact. The lateral compartment shows normal articular cartilage on the lateral femoral condyle and lateral tibial plateau. The lateral meniscus is normal. The lateral gutter is normal. The posterior horn of the medial meniscus was debrided to a stable base using amina through both portals. We inspected the posterior aspect of the joint through both portals. We were able to access more easily through the anteromedial portal. We placed an accessory posteromedial portal for the shaver. This was used to debride all of the soft tissues posterior to the PCL, superficial to the posterior capsule. We did not encounter an obvious cyst. The 70 degree scope was used just to visualize all the way around the corner of the PCL to the posterior horn of the lateral meniscus. We punctured the posterior capsule and were able to visualize the muscle belly fibers of the gastrocnemius. There was not an obvious cyst posterior to the capsule. Arthroscopic instruments were removed, the portal sites were Steri-Stripped closed, the knee was infiltrated with 30 mL of 0.25% Marcaine without epinephrine. A dry dressing was applied, the tourniquet was released. Sponge and needle counts were correct x 2. The patient tolerated the procedure well. There were no apparent complications. They were carefully transferred to the hospital bed and taken to the postanesthesia care unit in satisfactory condition. PLAN: The patient will be discharged to home. They may weightbear as tolerates. Range of motion will be unrestricted. They will follow up in the office next week for a wound check.
--- NOTE | 2023-11-19 10:27 | W.ANESCHARGE ---
Anesthesia Charges Start Date/Time Anesthesia Start Date: 11/19/23 Anesthesia Start Time: 09:06 Stop Date/Time Anesthesia Stop Date: 11/19/23 Anesthesia Stop Time: 10:26
--- NOTE | 2023-11-19 12:00 | W.ANESCHARGE ---
Anesthesia Charges Start Date/Time Anesthesia Start Date: 11/19/23 Anesthesia Start Time: 09:06 Stop Date/Time Anesthesia Stop Date: 11/19/23 Anesthesia Stop Time: 10:26
== END 2023-11-19 12:10 | disposition home or self-care (01) ==
PROVIDERS: PCP Family Medicine; Visit Provider Orthopaedic Surgery
PROC: (CPT 29870; principal; 2023-11-19 09:15)
DX: M23.222 Derangement of posterior horn of medial meniscus due to old tear or injury, left knee (principal); M67.864 Other specified disorders of tendon, left knee
CPT/HCPCS: 29881; 01400; J0665; J0690; J2250; J2405; J2704; J3010; J7120

== ENCOUNTER 2023-12-15 09:45 | Outpatient (RCR) | payer OTHER, SELFPAY | END 2024-02-17 10:01 | disposition home or self-care (01) | PROVIDERS: PCP Family Medicine; Visit Provider Physician Assistant | DX: Z98.890 Other specified postprocedural states (principal); M25.562 Pain in left knee; M25.662 Stiffness of left knee, not elsewhere classified; Z51.89 Encounter for other specified aftercare | CPT/HCPCS: 97110; 97112; 97116; 97140; 97161 ==